=== PATIENT | female | born 1970 | race African-American/Black ===

== ENCOUNTER 2016-06-23 23:06 | Inpatient (IN) | payer OTHER ==
[~2016-06-23] VITALS: Ht 154.9 cm; Wt 65.3 kg
[~2016-06-23 23:06] MED LIST: ABILIFY15 MG PO; ABILIFY20 MG PO; ABILIFY5 MG PO; ADVAIR 100-501 EACH IH; ADVAIR 250/501 DISK IH; AMITRIPTYLINE H10 MG PO; ASPIR-LOW81 MG PO; ATORVASTATIN CA40 MG PO; AZITHROMYCIN250 MG1 PO; BENZONATATE100 MG PO; BUPROPION XL150 MG PO; BUSPAR15 MG PO; BUSPIRONE HCL15 MG PO; CARVEDILOL25 MG PO; CARVEDILOL3.125 MG PO; CARVEDILOL6.25 MG PO; CLONIDINE HCL0.1 MG PO; COREG25 M1 PO; DAY TIME SOFTG1 EACH PO; DUONEB 2.5-0.5 M3 ML AEROSOL; ELAVIL25 MG PO; ENTRESTO 24 MG1 EACH PO; FUROSEMIDE20 MG PO; INTUNIV2 MG PO; IPRATROPIU0.2 MG/1 M IH; K-DUR20 MEQ PO; LABETALOL HCL100 MG PO; LASIX20 MG PO; LASIX40 MG PO; LASIX80 MG PO; LISINOPRIL40 MG PO; LISINOPRIL5 MG PO; LORAZEPAM0.5 MG PO; NIGHT TIME SOF1 EACH PO; PREDNISONE10 M1 PO; PREDNISONE5 M1 PO; PREDNISONE5 MG PO; PROAIR HFA8.5 GM IH; PROVENTIL,2.5 MG/3 M IH; RITALIN20 MG PO; SINGULAIR10 MG PO; SPIRONOLACTONE25 MG PO; SYMBICORT60 INHALAT IH; TOPAMAX25 MG PO; VYVANSE50 MG PO; WELLBUTRIN SR150 MG PO; WELLBUTRIN XL150 MG PO; WELLBUTRIN XL300 MG PO; ZOMIG5 MG PO
[2016-06-24 00:20] LABS: MCH 30.5 PG (29.0-34.0); MCV 95.5 FL (83-99); MEAN PLAT.VOLUME 10.7 uM^3 (9.5-12.4); PLATELET COUNT 240 K/uL (156-360); RBC DIS.WIDTH-SD 43.8 % (39-53); RED BLOOD COUNT 4.19 M/uL (3.80-5.20); WHITE BLOOD COUNT 7.5 K/uL (4.1-10.2)
[2016-06-24 00:22] LABS: CARBON DIOXIDE (BICARBONATE) 26.8 MEQ/L (20-31)
[2016-06-24 00:23] LABS: CHLORIDE 105 mEq/L (99-109); POTASSIUM 3.4 mEq/L (3.7-5.4); SODIUM 139 mEq/L (136-147)
[2016-06-24 00:25] LABS: GLUCOSE 107 mg/dL (70-99)
[2016-06-24 00:26] LABS: ANION GAP 13 MEQ/L (2-14)
[2016-06-24 00:29] LABS: GFR ESTIMATE (CALCULATED) > 59 mL/min/; UREA NITROGEN (BUN) 14 mg/dL (9-23)
[2016-06-24 00:32] LABS: TROP-I INTERPRETATION NEGATIVE; TROPONIN-I 0.02 ng/mL (0.0-0.30)
[2016-06-24] MEDS ORDERED: ELAVIL10 MG PO (01:19)
[2016-06-24] MEDS ORDERED: WELLBUTRIN XL150 MG PO (01:19)
[2016-06-24] MEDS ORDERED: GUANFACINE HCL1 MG PO (01:20)
[2016-06-24] MEDS ORDERED: CORLANOR5 MG PO (01:21)
[2016-06-24] MEDS ORDERED: LO-DOSE ASPIRIN81 M2 PO (01:21)
[2016-06-24] MEDS ORDERED: CARVEDILOL6.25 MG PO (01:21)
[2016-06-24] MEDS ORDERED: ATORVASTATIN CA40 MG PO (01:21)
[2016-06-24] MEDS ORDERED: PROAIR HFA8.5 GM IH (01:22)
[2016-06-24] MEDS ORDERED: FUROSEMIDE20 MG PO (01:22)
[2016-06-24] MEDS ORDERED: ENTRESTO 24 MG1 EACH PO (01:22)
[2016-06-24 14:03] VITALS: BP 121/89
[2016-06-24 14:15] VITALS: BP 121/89
[2016-06-24 20:20] VITALS: BP 138/80
[2016-06-24 23:40] VITALS: BP 126/85
[2016-06-25 04:00] VITALS: BP 103/83
[2016-06-25 07:29] VITALS: BP 109/69
[2016-06-25 09:39] LABS: ANION GAP 11 MEQ/L (2-14); CHLORIDE 105 MEQ/L (99-109); GFR ESTIMATE (CALCULATED) > 59 mL/min/; GLUCOSE 157 mg/dL (70-99); SAMPLE HEMOLYSIS CHECK 0; SAMPLE ICTERIC CHECK 0; SAMPLE LIPEMIA CHECK 0; SODIUM 139 MEQ/L (136-147)
[2016-06-25 09:43] LABS: POTASSIUM 4.8 MEQ/L (3.7-5.4); UREA NITROGEN (BUN) 27 mg/dL (9-23)
[2016-06-25 09:46] LABS: HEMATOCRIT 41.1 % (36.0-46.0); MCH 31.4 PG (29.0-34.0); MCHC 32.1 G/DL (30.0-36.0); MCV 97.9 FL (83-99); MEAN PLAT.VOLUME 10.9 uM^3 (9.5-12.4); PLATELET COUNT 255 K/uL (156-360); RBC DIS.WIDTH-CV 13.8 % (11.8-14.6); RBC DIS.WIDTH-SD 49.3 % (39-53)
[2016-06-25 09:47] LABS: WHITE BLOOD COUNT 16.9 K/uL (4.1-10.2)
[2016-06-25 11:22] VITALS: BP 99/64
[2016-06-25] MEDS ORDERED: PREDNISONE20 MG PO (15:23)
[2016-06-25] MEDS ORDERED: ZITHROMAX Z-PA250 MG PO (15:23)
[2016-06-25] MEDS ORDERED: DOXYCYCLINE HY100 M3 PO (16:01)
[2016-06-25] MEDS ORDERED: AZITHROMYCIN500 M1 PO (16:01)
[2016-06-25 16:16] VITALS: BP 108/73
== END 2016-06-25 17:09 | disposition home or self-care (01) | DRG 291 ==
LOC: EME 23:06 → EDOF 06-24 01:59 → 5SOUTH 06-24 14:01
PROVIDERS: Emergency Medicine; Physician Assistant
DX: I50.23 Acute on chronic systolic (congestive) heart failure (principal); J45.901 Unspecified asthma with (acute) exacerbation; J18.9 Pneumonia, unspecified organism; I47.2 Ventricular tachycardia; I42.0 Dilated cardiomyopathy; F31.9 Bipolar disorder, unspecified; Z95.810 Presence of automatic (implantable) cardiac defibrillator; E87.6 Hypokalemia; G43.909 Migraine, unspecified, not intractable, without status migrainosus; O94 Sequelae of complication of pregnancy, childbirth, and the puerperium
CPT/HCPCS: 71020; 71275; 80048; 82803; 83605; 83880; 84484; 85027; 87040; 93005; 94640; 94640 76; 94799; 99202; 99281; 99285; J1100; J1644; J1940; J1956; J2930